=== PATIENT | male | born 1975 | race American Indian/Alaskan Native ===

== ENCOUNTER 2025-08-03 07:35 | Emergency (ER) | payer OTHER ==
[~2025-08-03] VITALS: Ht 177.8 cm; Wt 99.8 kg
[2025-08-03 07:57] LABS: IMMATURE GRANULOCYTE ABSOLUTE 0.04 K/uL (0-1); NUCLEATED RED BLOOD CELLS 0.0 % (0.0-0.19); PLATELET COUNT (AUTO) 276 K/uL (130-400); RED BLOOD CELL COUNT(AUTO) 4.60 MIL/uL (4.50-6.20); RED CELL DISTRIBUTION WIDTH 12.5 % (11.0-15.5); WHITE BLOOD COUNT (AUTO) 12.6 K/uL (4.8-10.8)
[2025-08-03 08:18] LABS: ASPARTATE AMINOTRANSFERASE 14.0 U/L (10-37); CREATININE 1.2 mg/dL (0.5-1.3); GLOMERULAR FILTR. RATE CALC 73.0 mL/min (>90); GLUCOSE,RANDOM 147.0 mg/dL (70-105); SODIUM SERUM 134.0 mmol/L (136-145); TOTAL PROTEIN, SERUM 8.2 g/dL (6.0-8.3); UREA NITROGEN, BLOOD 16.0 mg/dL (7-18)
--- NOTE | 2025-08-03 08:48 | EKG ---
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
--- NOTE | 2025-08-03 09:34 | HMCIMG ---
EXAMINATION: CT Abdomen and Pelvis without intravenous contrast. CLINICAL HISTORY: None provided. TECHNIQUE: Axial CT of the abdomen and pelvis without intravenous contrast. Multiplanar reformations were generated and reviewed. CONTRAST: No intravenous contrast. COMPARISON: None provided. FINDINGS: LUNG BASES: Minimal ground-glass opacity is present in the left lung base. No pleural effusions. LIVER: The liver measures 20 cm in craniocaudal dimension and is enlarged. No focal lesion. GALLBLADDER AND BILE DUCTS: Minimal sludge is present in the gallbladder. No radio-opaque gallstones. No biliary ductal dilatation. PANCREAS: Unremarkable. SPLEEN: Unremarkable. ADRENAL GLANDS: Unremarkable. KIDNEYS, URETERS, AND BLADDER: Bilateral renal calculi measuring 3 to 5 mm. Right hydronephrosis and hydroureteronephrosis are present with a 5 mm calculus in the right mid ureter at the level of the iliac crossing. No hydronephrosis or hydroureter on the left. A 4.4 x 4.5 cm parapelvic cyst is present in the left kidney. The urinary bladder is unremarkable. STOMACH AND BOWEL: A hiatal hernia is present. Post-operative changes are evident near the gastroesophageal junction. No bowel obstruction, enteritis, or colitis. APPENDIX: No CT features of acute appendicitis. PERITONEUM: No free fluid or free air. 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 REPRODUCTIVE: Unremarkable as assessed. VASCULATURE: Normal caliber aorta. BONES: Mild spondylotic changes are present in the spine. 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 No aggressive or acute osseous pathology. IMPRESSION: Right hydronephrosis and hydroureteronephrosis due to a 5 mm obstructing calculus in the right mid ureter. Bilateral small renal calculi measuring 3 to 5 mm. Enlarged liver measuring 20 cm. 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
--- NOTE | 2025-08-03 09:48 | ERN ---
ED Note History of Present Illness Stated Complaint: FLANK PAIN Chief Complaint: Flank Pain Time Seen by MD: 07:42 Dictation: 50-year-old male presenting to the emergency department with left-sided flank pain over the past few days worse this morning. Nausea no vomiting. Patient has history of kidney stones with similar discomfort in the past. Allergies: Coded Allergies: No Known Drug Allergies (Unverified Allergy, Unknown, 08/03/25) Past Medical History Past Medical History: Hypertension Surgical History: Other, Bariatric Surgery Surgical History Other: RIGHT HIP SX Review of System Dictation Constitutional: Negative for fever,chills, and weight loss Eyes: Negative for injury, pain,redness, and discharge ENT: Negative for injury,pain or swelling Cardiovascular: Negative for chest pain, palpitations, and edema Respiratory: Negative for shortness of breath, cough, and wheezing, Abdomen/GI: Negative for abdominal pain, positive for nausea Back: Per HPI MS/Extremity: Negative for injury and deformity Skin: Negative for rash, and discoloration Neuro: Negative for headache, weakness, numbness, tingling, and seizure Psych: Negative for suicide ideation, homicidal ideation, and hallucinations Initial Vital Sign VS Vital Signs Date Time Temp Pulse Resp B/P (MAP) Pulse Ox O2 Delivery O2 Flow Rate FiO2 08/03/25 07:37 97.9 75 16 145/105 97 Room Air 08/03/25 11:13 0 21 Physical Exam Dictation General: awake, alert, unkempt Head/Face: Normocephalic, atraumatic Eyes: PERRL, EOMI, vision at baseline ENT: oral cavity clear, TMs clear, no signs of infection Neck: Trachea midline, supple, no nuchal rigidity Cardiovascular: RRR, normal S1/S2, No MRGs, no JVD Respiratory: CTAB, no respiratory distress, No rales or wheezes Abdomen: Soft, non-tender, non-distended, normal bowel sounds, no guarding or rebound. Skin: Warm, dry, normal turgor, no rash MS/Extremity: Pulses equal, no cyanosis, neurovascular intact, FROM Neuro: COAx4, GCS 15, strength 5/5, CN 2-12 intact, normal cerebellar exam, normal gait, Psych: Normal behavior, mood, and affect normal Results (Laboratory/Radiology) Laboratory/Radiology Laboratory Tests Test 08/03/25 07:51 08/03/25 12:30 White Blood Count 12.6 K/uL (4.8-10.8) H Red Blood Count 4.60 MIL/uL (4.50-6.20) Hemoglobin 14.8 g/dL (14.0-18.0) Hematocrit 43.0 % (42-54) Mean Corpuscular Volume 93.5 fL (79-99) Mean Corpuscular Hemoglobin 32.2 pg (27.0-33.0) Mean Corpuscular Hemoglobin Concent 34.4 g/dL (32.0-36.0) Red Cell Distribution Width 12.5 % (11.0-15.5) Platelet Count 276 K/uL (130-400) Mean Platelet Volume 9.2 fL (7.5-10.5) Immature Granulocyte % (Auto) 0.3 % (0-1) Neutrophils (%) (Auto) 90.7 % (40.0-77.0) H Lymphocytes (%) (Auto) 5.2 % (21.0-51.0) L Monocytes (%) (Auto) 3.6 % (3.0-13.0) Eosinophils (%) (Auto) 0.1 % (0.0-8.0) Basophils (%) (Auto) 0.1 % (0.0-5.0) Neutrophils # (Auto) 11.5 K/uL (1.8-7.7) H Lymphocytes # (Auto) 0.7 K/uL (1.0-4.8) L Monocytes # (Auto) 0.5 K/uL (0.1-1.0) Eosinophils # (Auto) 0.01 K/uL (0.00-0.70) Basophils # (Auto) 0.01 K/uL (0.00-0.20) Absolute Immature Granulocyte (auto 0.04 K/uL (0-1) Nucleated Red Blood Cells 0.0 % (0.0-0.19) White Cell Morphology Comment See comments Sodium Level 134 mmol/L (136-145) L Potassium Level 4.9 mmol/L (3.5-5.1) Chloride Level 98 mmol/L (101-111) L Carbon Dioxide Level 29 mmol/L (21-32) Blood Urea Nitrogen 16 mg/dL (7-18) Creatinine 1.2 mg/dL (0.5-1.3) Glomerular Filtration Rate Calc 73 mL/min (>90) Random Glucose 147 mg/dL (70-105) H Total Calcium 9.8 mg/dL (8.5-10.1) Total Bilirubin 0.5 mg/dL (0.2-1.0) Direct Bilirubin 0.1 mg/dL (0.0-0.3) Aspartate Amino Transf (AST/SGOT) 14 U/L (10-37) Alanine Aminotransferase (ALT/SGPT) 22 U/L (12-78) Alkaline Phosphatase 58 U/L (50-136) Troponin I High Sensitivity < 4 ng/L (4-75) L Total Protein 8.2 g/dL (6.0-8.3) Albumin 4.0 g/dL (3.5-5.0) Urine Color LIGHT-YELLOW (YELLOW) Urine Appearance CLEAR (CLEAR) Urine pH 6.0 (5.0-8.0) Urine Specific [place] 1.020 (1.001-1.031) Urine Protein NEGATIVE mg/dL (NEGATIVE) Urine Glucose (UA) 50 mg/dL (NEGATIVE) H Urine Ketones 20 mg/dL (NEGATIVE) H Urine Occult Blood SMALL (NEGATIVE) H Urine Nitrate NEGATIVE (NEGATIVE) Urine Bilirubin NEGATIVE mg/dL (NEGATIVE) Urine Urobilinogen 0.2 mg/dL (0.2-1.0) Urine Leukocyte Esterase NEGATIVE Ramiro/uL Urine RBC 6-10 /HPF (0-1) H Urine WBC 2-5 /HPF (0-1) H Urine Squamous Epithelial Cells RARE /HPF (0-2) Urine Bacteria None /HPF (None Seen) Labs Reviewed?: Yes EKG Comment: Heart rate 75 normal sinus rhythm no STEMI normal intervals ED Course ED Course Orders Procedure Category Date Status Time 12 Lead Ekg Tracing- EKG 08/03/25 Complete Technical 07:43 Basic Metabolic Panel LAB 08/03/25 Complete 07:43 Cbc With Differential LAB 08/03/25 Complete 07:43 Hepatic Function Panel LAB 08/03/25 Complete 07:43 Troponin I High LAB 08/03/25 Complete Sensitivity 07:43 Urinalysis Profile LAB 08/03/25 Complete 07:43 Ct Abd/Pel Wo Con CT 08/03/25 Resulted Renal/Appy 07:43 Ondansetron 4mg Inj PHA 08/03/25 Complete (Zofran 4mg Inj) 07:43 Ketorolac PHA 08/03/25 Complete Tromethamine 15mg/Ml 07:43 0.9%Nacl 1000ml (Ns PHA 08/03/25 Complete 1000ml) 08:00 Morphine 4mg Syg PHA 08/03/25 Complete (Morphine 4mg Syg) 09:46 Current Medications Medications (Trade) Dose Ordered Sig/Juanjose Route PRN Reason Start Time Stop Time Status Last Admin Dose Admin Ketorolac Tromethamine (toRADol) 15 mg ONCE STAT IV 08/03/25 07:43 08/03/25 07:50 DC 08/03/25 11:30 Morphine Sulfate (morPHINE 4MG SYG) 4 mg ONCE STAT IVP 08/03/25 09:46 08/03/25 09:49 DC 08/03/25 11:30 Ondansetron HCl (zoFRAN 4MG INJ) 4 mg ONCE STAT IVP 08/03/25 07:43 08/03/25 07:46 DC 08/03/25 11:30 Sodium Chloride 1,000 ml @ 0 mls/hr ONCE ONCE IV 08/03/25 08:00 08/03/25 08:01 DC 08/03/25 11:30 Vital Signs Date Time Temp Pulse Resp B/P (MAP) Pulse Ox O2 Delivery O2 Flow Rate FiO2 08/03/25 11:13 97.9 72 18 138/92 97 Room Air* 0 21 08/03/25 07:37 97.9 75 16 145/105 97 Room Air Medical Decision Making MDM MDM: Differential diagnosis: Rationale: Tests considered and ordered secondary to shared decision making include: Previous outside records reviewed: Old ER visits. Risk of complication and/or morbidity or mortality of patient management: None Medications-Per medication reconciliation Need for hospitalization: Patient does not meet criteria for hospitalization. Need for emergency major/minor surgery: No There are no social concerns with this patient. Prescription drug management Prescriptions will include symptomatic care Patient's prior external medical records from other ER visits were reviewed by me as indicated. Prior testing and results from previous visits were reviewed. Prior tests were taken into account with medical decision making and resource utilization, independent historian/historians were used to obtain complete medical history. I independently interpreted the test that were performed, results were reviewed by me and considered findings on radiology if ordered. Medical management and examination interpretation discussions were had by me with other qualified healthcare professionals as indicated for the patient's care. 50-year-old male with kidney stone renal colic, serial exam negative workup, patient has moderate hydronephrosis, symptoms improved tolerating p.o. intake urine clear creatinine stable prescriptions given referral to Urology DX & DISP Disposition: Transfer Departure Impression: Primary Impression: Renal colic on right side Condition: Stable Scripts Ondansetron (Ondansetron Odt) 4 Mg Tab.rapdis 4 MG PO BID for vomiting for 5 Days, #10 TAB Prov: LEENA WHITE MD 08/03/25 Naproxen (Naproxen) 250 Mg Tablet 250 MG PO BID for 5 Days, #10 TAB Prov: LEENA WHITE MD 08/03/25 Tamsulosin HCl (Flomax) 0.4 Mg Cap.er.24h 1 CAP PO DAILY for 30 Days, #30 CAP 0 Refills Prov: LEENA WHITE MD 08/03/25 Referrals: SELF,REFERRAL (PCP) LEENA WHITE MD Aug 03, 2025 09:48
--- NOTE | 2025-08-03 10:57 | NUR ---
PT JUST PLACED IN ED BED 5
[2025-08-03 11:13] VITALS: BP 138/92; PULSE 72; RESP 18; TEMP 97.8; O2SAT 97
[2025-08-03] MEDS: 0.9%NACL 1000ML 1,000 ML IV ONE (11:30)
[2025-08-03 12:39] LABS: APPEARANCE,URINE CLEAR (CLEAR); GLUCOSE, URINE (UA) 50 mg/dL (NEGATIVE); LEUKOCYTE ESTERASE ,URINE NEGATIVE Leu/uL (NEGATIVE); NITRATE,URINE NEGATIVE (NEGATIVE); OCCULT BLOOD,URINE SMALL (NEGATIVE)
[2025-08-03 12:40] LABS: ADD UA MICROSCOPIC YES
[2025-08-03 12:44] LABS: SQUAMOUS EPITHELIAL CELL,UR RARE /HPF (0-2)
[2025-08-03] MEDS ORDERED: NAPR-1196 PO (13:19)
[2025-08-03] MEDS ORDERED: ONDA-243 PO (13:19)
[2025-08-03] MEDS ORDERED: TAMS-55 PO (13:19)
== END 2025-08-03 13:33 | disposition home or self-care (01) ==
LOC: EDH 07:35
DX: N13.2 Hydronephrosis with renal and ureteral calculous obstruction (principal); I10 Essential (primary) hypertension
CPT/HCPCS: 99285; 74176; 96374; 96375; 96361; 80076; 84484; 80048; 85025; 81001; 36415; 93005; J1885; J7030; J2405; J2270